=== PATIENT | female | born 1985 | race Caucasian/White ===

== ENCOUNTER 2017-01-07 11:24 | Emergency (ER) | payer BC ==
[~2017-01-07] VITALS: Ht 162.6 cm; Wt 70.5 kg
[~2017-01-07 11:24] MED LIST: ADDERALL20 MG PO; LEXAPRO10 MG PO
[2017-01-07 12:33] LABS: HEMATOCRIT 36.2 % (36.0-46.0); MCH 30.7 PG (29.0-34.0); MCV 90.3 FL (83-99); MEAN PLAT.VOLUME 8.5 uM^3 (9.5-12.4); PLATELET COUNT 204 K/uL (156-360); RBC DIS.WIDTH-CV 12.3 % (11.8-14.6); RBC DIS.WIDTH-SD 40.4 % (39-53); RED BLOOD COUNT 4.01 M/uL (3.80-5.20)
[2017-01-07 12:51] LABS: ADD MIUA? YES; BILIRUBIN NEGATIVE; BLOOD NEGATIVE; COLOR YELLOW ((YELLOW)); GLUCOSE (STRIP) 150; KETONES NEGATIVE; LEUKOCYTES TRACE; NITRITE NEGATIVE; PROTEIN (STRIP) 30; SPECIFIC GRAVITY 1.017 (1.000-1.030); UROBILINOGEN 0.2 MG/DL (0.2-1.0)
[2017-01-07 12:55] LABS: CHLORIDE 101 mEq/L (99-109); POTASSIUM 3.1 mEq/L (3.7-5.4); SODIUM 134 mEq/L (136-147)
[2017-01-07 12:56] LABS: GLUCOSE 147 mg/dL (70-99)
[2017-01-07 12:58] LABS: ANION GAP 9 MEQ/L (2-14)
[2017-01-07 13:00] LABS: GFR ESTIMATE (CALCULATED) > 59 mL/min/
[2017-01-07 13:01] LABS: UREA NITROGEN (BUN) 12 mg/dL (9-23)
[2017-01-07 13:04] LABS: QUANTITATIVE HCG < 4.0 MIU/ML
[2017-01-07 13:09] LABS: BACTERIA RARE /HPF; EPITHELIAL CELLS 2+ /HPF; MUCUS TRACE /LPF; RED BLOOD CELLS 0-5 /HPF (0-5); UCUL ADDED? NO
[2017-01-07 14:49] LABS: TOTAL BILIRUBIN 0.4 mg/dL (0.0-1.0)
[2017-01-07 14:50] LABS: ALKALINE PHOSPHATASE 74 IU/L (3-129)
[2017-01-07 14:53] LABS: DIRECT BILIRUBIN 0.2 mg/dL (0.0-0.3)
[2017-01-07 14:54] LABS: LIPASE 18 U/L (1.0-51.0)
[2017-01-07 14:59] LABS: TROP-I INTERPRETATION NEGATIVE; TROPONIN-I < 0.01 ng/mL (0.0-0.30)
[2017-01-07] MEDS ORDERED: ZOFRAN4 MG PO (16:42)
[2017-01-07] MEDS ORDERED: ULTRAM50 MG PO (16:42)
[2017-01-07] MEDS ORDERED: KEFLEX500 MG PO (16:42)
[2017-01-07 16:58] VITALS: BP 110/78
== END 2017-01-07 16:59 | disposition home or self-care (01) ==
LOC: EME 11:24
DX: R10.13 Epigastric pain (principal); E87.6 Hypokalemia; E87.1 Hypo-osmolality and hyponatremia; R73.9 Hyperglycemia, unspecified; E86.0 Dehydration; M79.7 Fibromyalgia
CPT/HCPCS: 74177; 80048; 80076; 81003; 83690; 84484; 84702; 85027; 93005; 99281; 99285; J1200; J2930; J7030